=== PATIENT | female | born 1970 | race Caucasian/White ===

== ENCOUNTER → 2017-06-14 | Outpatient (CLI) | payer OTHER | LOC: RAD 12:18 | DX: R22.41 Localized swelling, mass and lump, right lower limb (principal); W19.XXXA Unspecified fall, initial encounter; Z88.6 Allergy status to analgesic agent; Z88.2 Allergy status to sulfonamides ==

== ENCOUNTER → 2018-03-08 | Outpatient (CLI) | payer OTHER ==
[2018-03-08 13:18] LABS: EOS # 0.1 (0.04-0.40); EOS % 0.7 % (1.0-5.0); HEMATOCRIT 41.2 % (37.0-47.0); HEMOGLOBIN 13.6 g/dL (12.5-16.0); LYMPH# 4.2 (1.50-4.00); MEAN CELL VOLUME 88 fl (78-100); MEAN CORPUSCULAR HEMOGLOBIN 29 pg (27-31); MEAN CORPUSCULAR HGB CONC 33 g/dL (33-37); MEAN PLATELET VOLUME 9.7 fl (7.4-10.4); NEU # 7.7 (1.40-6.50); PLATELET COUNT 345 K/mm3 (130-400); RED BLOOD COUNT 4.69 M/mm3 (4.10-5.30); RED CELL DISTRIBUTION WIDTH 13.6 % (11.5-14.5)
== END ==
LOC: LAB 12:53
PROVIDERS: Family Medicine
DX: T78.40XA Allergy, unspecified, initial encounter (principal); J30.2 Other seasonal allergic rhinitis

== ENCOUNTER → 2018-12-14 | Outpatient (CLI) | payer OTHER | LOC: RAD 11:34 | DX: M79.672 Pain in left foot (principal) ==

== ENCOUNTER → 2019-03-11 | Outpatient (CLI) | payer OTHER | LOC: RAD 14:22 | DX: S92.512D Displaced fracture of proximal phalanx of left lesser toe(s), subsequent encounter for fracture with routine healing (principal) ==

== ENCOUNTER → 2019-11-21 | Outpatient (CLI) | payer OTHER | LOC: RAD 14:13 | DX: S92.515A Nondisplaced fracture of proximal phalanx of left lesser toe(s), initial encounter for closed fracture (principal) ==

== ENCOUNTER → 2019-12-30 | Outpatient (CLI) | payer OTHER | LOC: RAD 15:41 | DX: M54.5 Low back pain (principal) ==